=== PATIENT | male | born 1975 | race Caucasian/White ===

== ENCOUNTER 2017-01-09 10:37 | Emergency (ER) | payer OTHER ==
[~2017-01-09] VITALS: Wt 77.0 kg
[2017-01-09] MEDS ORDERED: KETOROLAC 15 MG INJ IV STA (10:52)
[2017-01-09] MEDS ORDERED: LOSA25TA5 PO (11:08)
[2017-01-09] MEDS ORDERED: ATOR10TA65 PO (11:08)
[2017-01-09 11:11] LABS: BASOPHIL # 0.1 10^3/ul (0.0-0.1); BASOPHILS % 1.1 % (0.0-2.0); EOSINOPHILS # 0.1 10^3/ul (0.0-0.5); EOSINOPHILS % 1.4 % (0.0-7.0); HEMOGLOBIN 16.8 g/dl (14.0-18.0); LYMPHOCYTES # 2.1 10^3/ul (0.8-2.9); LYMPHOCYTES % 32.8 % (15.0-51.0); MEAN CORPUSCULAR HEMOGLOBIN 30.8 pg (29.0-33.0); MEAN CORPUSCULAR VOLUME 87.9 fl (82.0-101.0); MEAN PLATELET VOLUME 10.7 fl (7.4-10.4); MONOCYTE # 0.4 10^3/ul (0.3-0.9); MONOCYTES % 5.9 % (0.0-11.0); NEUTROPHIL # 3.8 10^3/ul (1.6-7.5); NEUTROPHILS % 58.5 % (39.0-77.0); PLATELET COUNT 204 10^3/UL (140-415); RED BLOOD COUNT 5.46 10^6/ul (4.70-6.10); RED CELL DISTRIBUTION WIDTH 12.2 % (11.5-14.5); WHITE BLOOD COUNT 6.4 10^3/ul (4.8-10.8)
--- NOTE | 2017-01-09 11:30 | RADRPT ---
PROCEDURE: XR Chest. CLINICAL INDICATION: Chest pain TECHNIQUE: Single frontal view of the chest was obtained COMPARISON: None FINDINGS: No pleural effusion or pneumothorax. No consolidation. Unremarkable cardiomediastinal silhouette. No acute osseous abnormality. IMPRESSION: No acute cardiopulmonary disease. RPTAT: EE Carter Fagan Physician Date Time Electronically viewed and signed by Carter Fagan Physician on 01/09/2017 11:29 /
[2017-01-09 11:34] LABS: ANION GAP 11 (8-16); BLOOD UREA NITROGEN 9 mg/dl (7-20); CALCIUM 9.5 mg/dl (8.4-10.2); CARBON DIOXIDE 30 mmol/L (21-31); CHLORIDE 103 mmol/L (97-110); GLUCOSE 113 mg/dl (70-220); POTASSIUM 3.9 mmol/L (3.5-5.1); SODIUM 140 mmol/L (135-144)
[2017-01-09 11:37] LABS: D-DIMER 259.87 ng/ml (<460)
--- NOTE | 2017-01-09 11:37 | ERD ---
ER Documentation Chief Complaint Date/Time DATE: 01/09/17 TIME: 11:32 Chief Complaint CHEST PAIN X 4 DAYS HPI This is a very pleasant 41-year-old male history of hypertension and hyperlipidemia who presents to the emergency room with chest pain. He describes 4 days of symptoms that is left-sided, pinching like to the anterior portion of his chest that is worse with any movement of his body or extremities. He also describes a mild pleuritic component to it but no significant shortness of breath. He denies any recent travel, immobilization, leg swelling or surgery. No family history of early cardiac disease or sudden , no family history of pulmonary embolism. He does describe mild dry cough but nonproductive. ROS All systems reviewed and are negative except as per history of present illness. Medications Home Meds Active Scripts Ibuprofen* (Motrin*) 800 Mg Tab, 800 MG PO Q6, #30 TAB Prov:ANTONIO TIPTON MD 01/09/17 Reported Medications Atorvastatin Calcium (Atorvastatin Calcium) 10 Mg Tablet, 10 MG PO QHS, #30 TAB 01/09/17 Losartan Potassium* (Losartan Potassium*) 25 Mg Tablet, 25 MG PO DAILY, TAB 01/09/17 Allergies Allergies: Coded Allergies: No Known Allergy (Unverified , 01/09/17) PMhx/Soc Medical and Surgical Hx: pt denies Surgical Hx Hx Alcohol Use: No Hx Substance Use: No Hx Tobacco Use: No Smoking Status: Former smoker FmHx Family History: No coronary disease, No diabetes Physical Exam Vitals Vital Signs Date Time Temp Pulse Resp B/P Pulse Ox O2 Delivery O2 Flow Rate FiO2 01/09/17 10:39 98.0 77 18 177/104 99 Physical Exam General: Well developed, well nourished, no acute distress Head: Normocephalic, atraumatic. Eyes: Pupils equally reactive, EOM intact ENT: Moist mucous membranes Neck: Supple, no lymphadenopathy Respiratory: Lungs clear bilaterally, no distress, slightly reproducible chest wall TTP Cardiovascular: RRR, no murmurs, rubs, or gallops Abdominal: Soft, non-tender, non-distended, no peritoneal signs : Deferred MSK: No edema, no unilateral swelling, 5/5 strength Neurologic: Alert and oriented, moving all extremities, normal speech, no focal weakness, no cerebellar signs Skin: No rash Psych: Normal mood Result Diagram: 01/09/17 1100 01/09/17 1100 Results 24 hrs Laboratory Tests Test 01/09/17 11:00 White Blood Count 6.410^3/ul Red Blood Count 5.4610^6/ul Hemoglobin 16.8g/dl Hematocrit 48.0% Mean Corpuscular Volume 87.9fl Mean Corpuscular Hemoglobin 30.8pg Mean Corpuscular Hemoglobin Concent 35.0g/dl Red Cell Distribution Width 12.2% Platelet Count 95314^3/UL Mean Platelet Volume 10.7fl Neutrophils % 58.5% Lymphocytes % 32.8% Monocytes % 5.9% Eosinophils % 1.4% Basophils % 1.1% Nucleated Red Blood Cells % 0.0/100WBC Neutrophils # 3.810^3/ul Lymphocytes # 2.110^3/ul Monocytes # 0.410^3/ul Eosinophils # 0.110^3/ul Basophils # 0.110^3/ul Nucleated Red Blood Cells # 0.010^3/ul D-Dimer 259.87ng/ml D-Dimer Comment Sodium Level 140mmol/L Potassium Level 3.9mmol/L Chloride Level 103mmol/L Carbon Dioxide Level 30mmol/L Anion Gap 11 Blood Urea Nitrogen 9mg/dl Creatinine 0.90mg/dl Glucose Level 113mg/dl Calcium Level 9.5mg/dl Troponin I < 0.012ng/ml Current Medications Medications (Trade) Dose Ordered Sig/David Route PRN Reason Start Time Stop Time Status Last Admin Dose Admin Ketorolac Tromethamine (Toradol) 15 mg ONCE STAT IV 01/09/17 10:52 01/09/17 10:54 DC 01/09/17 11:09 Procedures/MDM EKG, MONITORS, & DIAGNOSTIC IMAGING: EKG: I reviewed and interpreted a 12-lead EKG. Rhythm: Normal sinus rhythm Ectopy: None Intervals: No abnormalities ST segments: No elevations or depressions T waves: No contiguous inversions Repeat EKG: EKG: I reviewed and interpreted a 12-lead EKG. Rhythm: Normal sinus rhythm Ectopy: None Intervals: No abnormalities ST segments: No elevations or depressions T waves: No contiguous inversions Chest x-ray: I reviewed and interpreted a 1 view of the chest Mediastinum: No enlargement Cardiac silhouette: No cardiomegaly Airspace: Clear lung landeros bilaterally without evidence of pneumothorax Bones: No evidence of fracture LAB INTERPRETATION: Negative d-dimer, negative troponin MEDICAL DECISION MAKING: The patient's history, physical exam and clinical presentation is concerning for likely musculoskeletal etiology versus pleurisy. He has very atypical presentation with limited risk factors. No exertional symptoms. No signs or symptoms concerning for dissection. He does have a pleuritic component but meets Wells low risk criteria, d-dimer appropriate. Based on the patient's clinical exam and history and risk factors, I have a much lower clinical concern for pulmonary embolism, acute aortic dissection, pneumothorax, pneumonia, cardiac tamponade HEART Score: 1 MACE Rate: Less than 1.7% Shared Decision Making: We had a conversation regarding risk stratification, MACE rate, and the risks, benefits, alternatives of disposition planning options. Disposition planning: Given very low clinical concern for cardiac etiology with better alternative diagnosis I do not recommend serial enzymes or inpatient hospitalization and the patient agrees. ER COURSE: Patient given NSAIDs. D-dimer negative. Troponin negative. EKG nonischemic. Symptoms improved with Toradol. The patient is safe for discharge. Short course of NSAIDs appropriate. Return precautions Discussed and understood Patient's blood pressure was elevated (>120/80) but appears stable without evidence of hypertensive emergency or urgency. The patient was counseled about the risks of hypertension and urged to pursue outpatient monitoring and therapy within a week with their primary care physician. I kept the patient and/or family informed of laboratory and diagnostic imaging results throughout the emergency room course. DISPOSITION PLAN: We discussed follow up with the patient's primary care doctor within 24 to 48 hours as needed. We also discussed return to the emergency room for worsening symptoms or worsening condition. Outpatient referral: [None required] Discharge Medications: Motrin Departure Diagnosis: Primary Impression: Chest pain Chest pain type: unspecified Qualified Code: R07.9 - Chest pain, unspecified type Additional Impression: Pleurisy Condition: Stable ANTONIO TIPTON MD Jan 09, 2017 11:37
[2017-01-09 12:08] LABS: TROPONIN-I < 0.012 ng/ml (0.00-0.12)
[2017-01-09] MEDS ORDERED: IBUP800T25 PO (12:26)
[2017-01-09 12:52] VITALS: BP 128/81; PULSE 71; RESP 18; TEMP 98.5
== END 2017-01-09 12:54 | disposition home or self-care (01) ==
LOC: E/R 10:37
DX: R07.9 Chest pain, unspecified (principal); R09.1 Pleurisy; I10 Essential (primary) hypertension; R40.2142 Coma scale, eyes open, spontaneous, at arrival to emergency department; R40.2252 Coma scale, best verbal response, oriented, at arrival to emergency department; R40.2362 Coma scale, best motor response, obeys commands, at arrival to emergency department; Z87.891 Personal history of nicotine dependence
CPT/HCPCS: 36415; 71010; 80048; 84484; 85025; 85378; 93005; 96374; 99285; J1885